=== PATIENT | male | born 1980 | race Caucasian/White ===

== ENCOUNTER 2018-03-01 11:45 | Emergency (ER) | payer MEDICARE ==
[~2018-03-01] VITALS: Ht 177.8 cm; Wt 72.6 kg
[~2018-03-01 11:45] MED LIST: ALBU90OI6 INH; ASPI325 PO; BENZ100A PO; BUDE10.22 INH; BUPR100 PO; BUPR100ER PO; BUPR150ERA PO; Budeprion Xl300 MG PO; CYCL10 PO; CYPR4 PO; Cyclobenzaprine5 MG PO; DIVA500EC; DIVA500ER; ETOD200 PO; ETOD300 PO; FAMO20 PO; FLUT44OIA INH; HYDACE5 PO; HYDCHL12.5; HYDR1TAB94 PO; IBUP400; KETO10 PO; METPRE4DP PO; NAPR500 PO; NAPR500EC PO; NAPR550 PO; NICO14TP; Naprosyn500 MG PO; OMEP20ER PO; PRAZ2 PO; PRED20 PO; PROACE100 PO; PROCODE120 PO; Pepcid40 MG PO; Percocet 5-3251 EACH PO; RXHYDACE PO; RXPROACE PO; Robaxin-750750 MG PO; Sulindac200 MG PO; TRAM50 PO; TRAZ100 PO; Valium5 MG PO; ZOLP10 PO; [UNRECOGNIZED DRUG - REMARK]; [UNRECOGNIZED DRUG - REMARK]; [UNRECOGNIZED DRUG - REMARK]
== END 2018-03-01 12:00 | disposition home or self-care (01) ==
LOC: ER 11:45
DX: J06.9 Acute upper respiratory infection, unspecified (principal); Z79.899 Other long term (current) drug therapy; Z79.82 Long term (current) use of aspirin; I10 Essential (primary) hypertension; J45.909 Unspecified asthma, uncomplicated; F43.10 Post-traumatic stress disorder, unspecified; F17.200 Nicotine dependence, unspecified, uncomplicated
CPT/HCPCS: 99281

== ENCOUNTER 2020-09-06 20:41 | Emergency (ER) | payer OTHER, MEDICARE ==
[~2020-09-06] VITALS: Ht 170.2 cm; Wt 74.8 kg
[2020-09-06] MEDS ORDERED: Prozac40 MG PO (21:21)
[2020-09-06] MEDS ORDERED: CYCL10 PO (22:14)
== END 2020-09-06 22:24 | disposition home or self-care (01) ==
LOC: ER 20:41
DX: M62.838 Other muscle spasm (principal); I10 Essential (primary) hypertension; J45.909 Unspecified asthma, uncomplicated; F17.200 Nicotine dependence, unspecified, uncomplicated; Z79.899 Other long term (current) drug therapy
CPT/HCPCS: 96372; 99283-25; A9270; J1885

== ENCOUNTER 2020-09-28 18:02 | Emergency (ER) | payer OTHER, MEDICARE ==
[~2020-09-28] VITALS: Ht 170.2 cm; Wt 76.7 kg
[~2020-09-28 18:02] MED LIST changes: +Prozac40 MG PO
[2020-09-28 19:09] LABS: Bicarbonate Venous 26.7 mmol/L (24.0-30.0); PCO2 Venous 52.7 mmHg (38-42); PO2 Venous 33.9 mmHg (38-42); pH Blood Venous 7.37 (7.34-7.37)
[2020-09-28 19:10] LABS: Base Excess Venous 5.2 mmol/L
[2020-09-28 19:18] LABS: BASOPHILS ABSOLUTE AUTO 0.06 K/mm3 (0.00-0.23); BASOPHILS PERCENT AUTO 1 % (0-2); EOSINOPHILS ABSOLUTE AUTO 0.05 K/mm3 (0.00-0.68); EOSINOPHILS PERCENT AUTO 1 % (0-6); Hematocrit 46.1 % (37.0-53.0); Hemoglobin 15.6 g/dL (13.5-17.5); IMMATURE GRAN PERCENT AUTO 1 % (0-1); LYMPHOCYTES ABSOLUTE AUTO 2.37 K/mm3 (0.84-5.20); LYMPHOCYTES PERCENT AUTO 22 % (21-46); MONOCYTES ABSOLUTE AUTO 0.78 K/mm3 (0.16-1.47); MONOCYTES PERCENT AUTO 7 % (4-13); Mean Corpuscular HGB 29.4 pg (26.0-34.0); Mean Corpuscular HGB Conc 33.8 g/dL (31.5-36.5); Mean Corpuscular Volume 87 fL (80-100); Mean Platelet Volume 9.1 fL (9.1-12.4); NEUTROPHILS ABSOLUTE AUTO 7.62 K/mm3 (1.96-9.15); NEUTROPHILS PERCENT AUTO 69 % (41-73); Platelet Count 324 K/mm3 (150-400); RDW Coefficient Variation 12.1 % (11.7-14.2); RDW Standard Deviation 38.6 fL (35.1-46.3); Red Blood Cell Count 5.31 M/mm3 (4.30-5.90); White Blood Cell Count 10.98 K/mm3 (4.00-11.30)
[2020-09-28 19:31] LABS: Alanine Aminotransfer (ALT/SGP 35 U/L (12-78); Albumin/Globulin Ratio 1.1 (0.8-1.8); Alk Phos 84 U/L (50-136); Anion Gap 7 mmol/L (6-16); Aspartate Aminotrans (AST/SGOT 30 U/L (12-37); Bilirubin, Total 0.4 mg/dL (0.1-1.0); Blood Urea Nitrogen 16 mg/dL (8-24); Bun/Creatinine Ratio 16.4 (12.0-20.0); CO2, Blood 27 mmol/L (21-32); Calcium, Blood 9.4 mg/dL (8.5-10.1); Chloride, Blood 103 mmol/L (98-108); Creatinine, Blood 0.98 mg/dL (0.60-1.20); Globulin, Blood 3.7 g/dL (2.2-4.0); Glomerular Filtration Rate >60 (60-); Glucose, Blood 87 mg/dL (70-99); Potassium, Blood 3.9 mmol/L (3.5-5.5); Sodium, Blood 137 mmol/L (136-145); Total Protein, Blood 7.7 g/dL (6.4-8.2); Troponin I <0.015 ng/mL (0.000-0.040)
[2020-09-28 19:45] LABS: Calcium, Ionized (POC) 1.27 mmol/L (1.10-1.46); Chloride (POC) 100 mmol/L (98-108); Glucose (ISTAT POC) 89 mg/dL (70-99); Hemoglobin (POC) 15.3 g/dL (13.5-17.5); Potassium (POC) 4.1 mmol/L (3.5-5.5); Sodium (POC) 139 mmol/L (135-148); Total CO2 (POC) 32 mmol/L (21-32)
== END 2020-09-28 21:24 | disposition home or self-care (01) ==
LOC: ER 18:02
PROVIDERS: Emergency Medicine
DX: T59.891A Toxic effect of other specified gases, fumes and vapors, accidental (unintentional), initial encounter (principal); R42 Dizziness and giddiness; R06.02 Shortness of breath; R05 Cough; I10 Essential (primary) hypertension; J45.909 Unspecified asthma, uncomplicated; F17.290 Nicotine dependence, other tobacco product, uncomplicated; Z79.899 Other long term (current) drug therapy
CPT/HCPCS: 71045; 80047; 80053; 82375; 82803; 84484; 85014; 85025; 93005; 93010; 99285-25

== ENCOUNTER 2021-04-27 13:12 | Emergency (ER) | payer OTHER, MEDICARE ==
[~2021-04-27] VITALS: Ht 170.2 cm; Wt 68.0 kg
== END 2021-04-27 13:37 | disposition home or self-care (01) ==
LOC: ER 13:12
DX: R53.83 Other fatigue (principal); I10 Essential (primary) hypertension; F17.290 Nicotine dependence, other tobacco product, uncomplicated; Z79.899 Other long term (current) drug therapy; V49.50XA Passenger injured in collision with unspecified motor vehicles in traffic accident, initial encounter; Y92.410 Unspecified street and highway as the place of occurrence of the external cause
CPT/HCPCS: 82947; 99284

== ENCOUNTER 2021-10-09 19:58 | Emergency (ER) | payer OTHER ==
[~2021-10-09] VITALS: Ht 170.2 cm; Wt 78.2 kg
[2021-10-09] MEDS ORDERED: GABA100 PO (22:02)
[2021-10-09] MEDS ORDERED: CYCL10 PO (22:51)
[2021-10-09] MEDS ORDERED: LIDO700A20 TOP (22:51)
== END 2021-10-09 23:14 | disposition home or self-care (01) ==
LOC: ER 19:58
DX: G89.29 Other chronic pain (principal); M54.50 Low back pain, unspecified; I10 Essential (primary) hypertension; J45.909 Unspecified asthma, uncomplicated; Z79.899 Other long term (current) drug therapy; F17.290 Nicotine dependence, other tobacco product, uncomplicated
CPT/HCPCS: 72100; A9270; J1885

== ENCOUNTER 2022-02-03 00:50 | Emergency (ER) | payer OTHER ==
[~2022-02-03] VITALS: Ht 170.2 cm; Wt 77.1 kg
[~2022-02-03 00:50] MED LIST changes: +GABA100 PO; +LIDO700A20 TOP
[2022-02-03 01:58] LABS: BASOPHILS ABSOLUTE AUTO 0.06 K/mm3 (0.00-0.23); BASOPHILS PERCENT AUTO 1 % (0-2); EOSINOPHILS ABSOLUTE AUTO 0.18 K/mm3 (0.00-0.68); EOSINOPHILS PERCENT AUTO 2 % (0-6); Hematocrit 43.3 % (37.0-53.0); Hemoglobin 15.1 g/dL (13.5-17.5); IMMATURE GRAN ABSOLUTE AUTO 0.05 K/mm3 (0.00-0.10); IMMATURE GRAN PERCENT AUTO 1 % (0-1); LYMPHOCYTES ABSOLUTE AUTO 3.03 K/mm3 (0.84-5.20); LYMPHOCYTES PERCENT AUTO 28 % (21-46); MONOCYTES ABSOLUTE AUTO 0.73 K/mm3 (0.16-1.47); MONOCYTES PERCENT AUTO 7 % (4-13); Mean Corpuscular HGB 30.3 pg (26.0-34.0); Mean Corpuscular HGB Conc 34.9 g/dL (31.5-36.5); Mean Corpuscular Volume 87 fL (80-100); Mean Platelet Volume 9.3 fL (9.1-12.4); NEUTROPHILS ABSOLUTE AUTO 6.61 K/mm3 (1.96-9.15); NEUTROPHILS PERCENT AUTO 62 % (41-73); Platelet Count 308 K/mm3 (150-400); RDW Coefficient Variation 12.8 % (11.7-14.2); RDW Standard Deviation 40.5 fL (35.1-46.3); Red Blood Cell Count 4.98 M/mm3 (4.30-5.90); White Blood Cell Count 10.66 K/mm3 (4.00-11.30)
[2022-02-03 02:10] LABS: Alanine Aminotransfer (ALT/SGP 34 U/L (12-78); Albumin, Blood 3.9 g/dL (3.4-5.0); Albumin/Globulin Ratio 1.1 (0.8-1.8); Alk Phos 99 U/L (50-136); Anion Gap 7 mmol/L (6-16); Aspartate Aminotrans (AST/SGOT 23 U/L (12-37); Bilirubin, Total 0.2 mg/dL (0.1-1.0); Blood Urea Nitrogen 24 mg/dL (8-24); Bun/Creatinine Ratio 25.8 (12.0-20.0); CO2, Blood 26 mmol/L (21-32); Calcium, Blood 9.7 mg/dL (8.5-10.1); Chloride, Blood 107 mmol/L (98-108); Creatinine, Blood 0.93 mg/dL (0.60-1.20); Globulin, Blood 3.7 g/dL (2.2-4.0); Glomerular Filtration Rate >60 (60-); Glucose, Blood 108 mg/dL (70-99); Potassium, Blood 4.4 mmol/L (3.5-5.5); Sodium, Blood 140 mmol/L (136-145); Total Protein, Blood 7.6 g/dL (6.4-8.2)
[2022-02-03] MEDS ORDERED: CYCL10 PO (05:13)
[2022-02-03] MEDS ORDERED: LIDO700A20 TOP (05:13)
== END 2022-02-03 06:09 | disposition home or self-care (01) ==
LOC: ER 00:50
PROVIDERS: Student in an Organized Health Care Education/Training Program
DX: R07.89 Other chest pain (principal); I10 Essential (primary) hypertension; F17.200 Nicotine dependence, unspecified, uncomplicated; F17.290 Nicotine dependence, other tobacco product, uncomplicated; Z79.899 Other long term (current) drug therapy
CPT/HCPCS: 36415; 71045; 80053; 84484; 85025; 93005; 93010; 99285-25

== ENCOUNTER 2023-11-29 20:27 | Emergency (ER) | payer OTHER, MEDICARE ==
[~2023-11-29] VITALS: Ht 162.6 cm; Wt 86.2 kg
[2023-11-29 20:43] VITALS: BP 161/94
== END 2023-11-29 22:16 | disposition home or self-care (01) ==
LOC: ER 20:27
DX: M96.89 Other intraoperative and postprocedural complications and disorders of the musculoskeletal system (principal); R60.0 Localized edema; Z79.899 Other long term (current) drug therapy; I10 Essential (primary) hypertension; J45.909 Unspecified asthma, uncomplicated; F43.10 Post-traumatic stress disorder, unspecified; Z87.891 Personal history of nicotine dependence
CPT/HCPCS: 99283

== ENCOUNTER 2024-01-27 13:24 | Emergency (ER) | payer OTHER ==
[~2024-01-27] VITALS: Ht 165.1 cm; Wt 72.6 kg
[2024-01-27 13:29] VITALS: BP 158/102
== END 2024-01-27 13:42 | disposition home or self-care (01) ==
LOC: ER 13:24
DX: S41.001D Unspecified open wound of right shoulder, subsequent encounter (principal); S40.011D Contusion of right shoulder, subsequent encounter; X58.XXXD Exposure to other specified factors, subsequent encounter; Z79.899 Other long term (current) drug therapy; Z87.891 Personal history of nicotine dependence
CPT/HCPCS: 99282